=== PATIENT | female | born 1965 ===

== ENCOUNTER 2018-04-03 07:45 | Emergency (ER) | payer OTHER, SELFPAY ==
[2018-04-03 07:53] VITALS: RESP 18; O2SAT 98
--- NOTE | 2018-04-03 09:18 | C.PDOC ---
History Of Present Illness 53 year old female presents to the emergency department with complaints of a two day history of a painful rash to the left side of the chest underneath the left breast. Patient denies fever, recent travel, shortness of breath, and hemoptysis. Time Seen by Provider: 04/03/18 07:55 Chief Complaint (Nursing): Abnormal Skin Integrity History Per: Patient History/Exam Limitations: no limitations Onset/Duration Of Symptoms: Hrs Current Symptoms Are (Timing): Still Present Location Of Injury: Left: Chest Quality Of Symptoms: Painful Recent travel outside of the [place]: No Past Medical History Reviewed: Historical Data, Nursing Documentation, Vital Signs Vital Signs: Last Vital Signs Temp 98 F 04/03/18 10:00 Pulse 69 04/03/18 10:00 Resp 18 04/03/18 10:00 BP 123/72 04/03/18 10:00 Pulse Ox 98 04/03/18 10:27 - Medical History PMH: No Chronic Diseases Surgical History: No Surg Hx Family History: States: No Known Family Hx - Social History Hx Alcohol Use: No Hx Substance Use: No - Immunization History Hx Tetanus Toxoid Vaccination: No Hx Influenza Vaccination: No Hx Pneumococcal Vaccination: No Review Of Systems Except As Marked, All Systems Reviewed And Found Negative. Constitutional: Negative for: Fever Cardiovascular: Positive for: Chest Pain Respiratory: Negative for: Cough (hemoptysis), Shortness of Breath Skin: Positive for: Rash Physical Exam - Physical Exam Appears: Non-toxic, No Acute Distress Skin: Warm, Dry, Rash (vesicular rash present underneath the left breast in a dermatomal distribution) Head: Atraumatic, Normacephalic Eye(s): bilateral: Normal Inspection Oral Mucosa: Moist Tongue: Normal Appearing Lips: Normal Appearing Throat: Normal, No Erythema, No Exudate Neck: Normal, Supple Chest: Symmetrical Cardiovascular: Rhythm Regular, No Friction Rub, No Murmur Respiratory: Normal Breath Sounds, No Rales, No Rhonchi, No Wheezing Gastrointestinal/Abdominal: Soft, No Tenderness Extremity: Normal ROM, No Swelling Neurological/Psych: Oriented x3, Normal Speech, Normal Cognition Gait: Steady ED Course And Treatment O2 Sat by Pulse Oximetry: 98 (RA) Pulse Ox Interpretation: Normal Progress Note: Plan: Motrin 600mg PO. Zovirax 800mg PO. Prednisolone 40mg PO Disposition - Disposition Referrals: [facility] [Outside] [facility]. [facility] [Outside] Disposition: HOME/ ROUTINE Disposition Time: 09:21 Condition: GOOD Additional Instructions: Follow up with the PMD/clinic within 1-2 days. Return if worsened. 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 - Scribe Statement The provider has reviewed the documentation as recorded by the Scribe (Kulwant Barr) All medical record entries made by the Scribe were at my direction and personally dictated by me. I have reviewed the chart and agree that the record accurately reflects my personal performance of the history, physical exam, medical decision making, and the department course for this patient. I have also personally directed, reviewed, and agree with the discharge instructions and disposition.
[2018-04-03 10:01] VITALS: BP 123/72; PULSE 69; TEMP 98
== END 2018-04-03 10:00 | disposition home or self-care (01) ==
LOC: C.ER 07:45
DX: B02.9 Zoster without complications (principal)

== ENCOUNTER 2018-05-19 07:19 | Emergency (ER) | payer OTHER, SELFPAY ==
[2018-05-19 07:23] VITALS: BP 130/74; PULSE 79; RESP 20; TEMP 98.3; O2SAT 97
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
--- NOTE | 2018-05-19 10:22 | RAD ---
Date of service: 05/19/2018 PROCEDURE: Left Knee Radiographs. HISTORY: Pain. COMPARISON: Comparison made with concurrent radiographs of the left femur and right tibia fibula. FINDINGS: BONES: No evidence of acute displaced fracture nor dislocation. The osseous structures intact. JOINTS: No significant osteoarthritis. JOINT EFFUSION: Small suprapatellar joint effusion felt be present OTHER FINDINGS: None. IMPRESSION: No acute fractures. Small suprapatellar joint effusion be present.
--- NOTE | 2018-05-19 10:22 | RAD ---
Date of service: 05/19/2018 PROCEDURE: Radiographs of the left tibia and fibula. HISTORY: fall, leg/knee pain COMPARISON: Correlation made with concurrent radiographs of the left knee and left femur TECHNIQUE: Frontal and lateral views obtained. FINDINGS: BONES: No fracture or destructive lesion. JOINT SPACES: Unremarkable. OTHER FINDINGS: None. IMPRESSION: Unremarkable radiographs of the left tibia and fibula.
--- NOTE | 2018-05-19 10:27 | RAD ---
Date of service: 05/19/2018 PROCEDURE: Left Femur Radiographs. Left femur 05/19/2018 HISTORY: fall, left leg pain COMPARISON: Correlation made with concurrent radiographs of the left knee TECHNIQUE: AP and Lateral Radiographs of the left femur. FINDINGS: FEMUR: Normal. No evidence of acute displaced fracture nor dislocation. Left femoral head is appropriately located within the left acetabulum SOFT TISSUES: Normal. OTHER FINDINGS: None. IMPRESSION: No evidence of acute displaced fracture nor dislocation.
== END 2018-05-19 10:09 | disposition home or self-care (01) ==
LOC: C.ER 07:19
DX: S83.92XA Sprain of unspecified site of left knee, initial encounter (principal); V03.10XA Pedestrian on foot injured in collision with car, pick-up truck or van in traffic accident, initial encounter; Y92.410 Unspecified street and highway as the place of occurrence of the external cause
CPT/HCPCS: 73552; 73562; 73590; 97116; 97161; 99285; G8978; G8979; G8980

== ENCOUNTER 2018-12-16 12:07 | Emergency (ER) | payer OTHER, SELFPAY ==
[2018-12-16 12:20] VITALS: BP 124/82; PULSE 87; RESP 20; TEMP 99; O2SAT 97
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
--- NOTE | 2018-12-16 14:37 | RAD ---
Date of service: 12/16/2018 PROCEDURE: Left Ankle Radiographs. HISTORY: Status post fall COMPARISON: None available. TECHNIQUE: 3 views obtained. FINDINGS: BONES: Normal. No fracture. JOINTS: Normal. No osteoarthritis. Ankle mortise maintained. Talar dome intact SOFT TISSUES: There is mild soft tissue swelling over the lateral malleolus. OTHER FINDINGS: None. IMPRESSION: No evidence of acute displaced fracture nor dislocation. Mild soft tissue swelling overlying the lateral malleolus
== END 2018-12-16 13:50 | disposition home or self-care (01) ==
LOC: C.ER 12:07
DX: S93.402A Sprain of unspecified ligament of left ankle, initial encounter (principal); W18.30XA Fall on same level, unspecified, initial encounter; Y92.009 Unspecified place in unspecified non-institutional (private) residence as the place of occurrence of the external cause; M25.572 Pain in left ankle and joints of left foot